=== PATIENT | male | born 1940 | race Caucasian/White ===

== ENCOUNTER → 2022-06-22 14:41 | Outpatient (CLI) | payer MEDICARE, SELFPAY ==
--- NOTE | 2022-06-22 14:46 | DI.RAD.S_ITS ---
PROCEDURE: XR HIP W PEL IF DONE MANDO MIN 4V INDICATIONS: bilateral hip pain TECHNIQUE: AP pelvis with lateral view(s) of the right and left hip(s). COMPARISON: None. FINDINGS: Bones: No fractures or dislocations. Pelvic ring appears intact. No suspicious bony lesions. Mild right hip osteoarthritic degenerative change with osseous hypertrophy. Moderate left hip osteoarthritic degenerative change with osseous hypertrophy and mild joint space narrowing. Soft tissues: The visualized bowel gas pattern is normal. No suspicious soft tissue calcifications. Ureteral lift clips. 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 Dictated by: Elayne Solis MD, PhD on 06/22/2022 at 15:37 Approved by: Elayne Solis MD, PhD on 06/22/2022 at 15:38
== END ==
PROVIDERS: PCP Internal Medicine; Referring Provider Anesthesiology; Visit Provider Anesthesiology
DX: M16.0 Bilateral primary osteoarthritis of hip (principal); M25.551 Pain in right hip; M25.552 Pain in left hip; M79.18 Myalgia, other site; M54.50 Low back pain, unspecified; G89.29 Other chronic pain
CPT/HCPCS: 73522; 99214

== ENCOUNTER → 2022-06-30 15:13 | Outpatient (CLI) | payer MEDICARE, SELFPAY ==
--- NOTE | 2022-06-30 15:14 | DI.MRI.S_ITS ---
PROCEDURE: MR LUMBAR SPINE WO CON INDICATIONS: Chronic low back pain with b/l radiculopathy TECHNIQUE: Noncontrast sagittal T1 spin echo and T2 fast echo, sagittal STIR, and T2 fast spin echo through the lumbar spine. In cases with scoliosis, additional coronal T2 fast spin echo may be performed. COMPARISON: [facility], CR, XR LUMBAR SPINE FLEXION EXTENSION, 05/19/2022, 12:48. FINDINGS: Image quality: Excellent. Alignment and Curvature: 3 mm grade 1 retrolisthesis of L5 on S1. Bone Marrow: Marrow is of normal overall signal. No acute vertebral body compression fractures. Benign hemangioma is noted in the T12 vertebral body. Spinal Cord: Conus medullaris terminates at the L1 level. Visualized cord demonstrates normal signal and size. Paraspinous Soft Tissues: No paravertebral masses. Mild grade 2 fatty infiltration of the paraspinous musculature. T12-L1: Disc desiccation without significant spinal canal stenosis or neural foraminal narrowing. L1-L2: Disc desiccation and mild circumferential disc bulging and mild bilateral facet hypertrophy, which result in mild narrowing of the spinal canal and mild bilateral neural foraminal narrowing. L2-L3: Disc desiccation and circumferential disc bulging with mild to moderate bilateral facet hypertrophy and buckling of the ligamentum flavum. Findings result in moderate narrowing of the central spinal canal is well as moderate bilateral neural foraminal narrowing. L3-L4: Disc desiccation and circumferential disc bulging and moderate bilateral facet hypertrophy and buckling of the ligamentum flavum, which result in moderate to severe narrowing of the central spinal canal, effacement of the bilateral lateral recesses, and moderate bilateral neural foraminal narrowing. L4-L5: Disc desiccation with circumferential disc bulging as well as moderate to severe bilateral facet hypertrophy and buckling of the ligamentum flavum. Findings result in severe narrowing of the central spinal canal, effacement of the lateral recesses, and moderate bilateral neural foraminal narrowing L5-S1: Disc desiccation and severe loss of disc space height with grade 1 retrolisthesis of L5 on S1 and [id number] bilateral facet hypertrophy. Findings result in moderate bilateral neural foraminal narrowing without significant spinal canal stenosis. IMPRESSION: 1. At L4-5, degenerative changes result in severe narrowing of the spinal canal and moderate bilateral neural foraminal narrowing. 2. At L3-4, degenerative changes result in moderate to severe spinal canal narrowing and moderate bilateral neural foraminal narrowing. 3. Additional multilevel degenerative disc disease and facet hypertrophy as described in detail in the body of the report. No high-grade neural foraminal narrowing. Approved by: Lamin Baumann M.D. on 06/30/2022 at 20:46
== END ==
PROVIDERS: PCP Internal Medicine; Referring Provider Anesthesiology; Visit Provider Anesthesiology
DX: M47.26 Other spondylosis with radiculopathy, lumbar region (principal); M47.27 Other spondylosis with radiculopathy, lumbosacral region; M51.16 Intervertebral disc disorders with radiculopathy, lumbar region; M48.061 Spinal stenosis, lumbar region without neurogenic claudication; M48.07 Spinal stenosis, lumbosacral region; M54.50 Low back pain, unspecified; M79.18 Myalgia, other site; M25.551 Pain in right hip; M25.552 Pain in left hip; G89.29 Other chronic pain
CPT/HCPCS: 72148

== ENCOUNTER → 2022-07-01 11:17 | Outpatient (CLI) | payer MEDICARE, SELFPAY ==
--- NOTE | 2022-07-01 11:19 | DI.RAD.S_ITS ---
PROCEDURE: XR CERVICAL SPINE 4V OR 5V INDICATIONS: Neck Pain TECHNIQUE: 5 views of the cervical spine acquired. COMPARISON: None. FINDINGS: Bones: No fractures or dislocations to the C7 level. Oblique images demonstrate no bony foraminal stenoses. Grade 1 anterolisthesis C4 on C5, likely due to facet arthrosis. Moderate disc height loss at C5-6 and C6-7, mild disc height loss at C4-5. Moderate multilevel facet arthrosis, most prominent at C3 through C7. Soft tissues: No prevertebral soft tissue swelling. IMPRESSION: Mild to moderate, multilevel degenerative disc disease and moderate, multilevel facet arthrosis. Dictated by: Yogi Granger M.D. on 07/01/2022 at 11:58 Approved by: Yogi Granger M.D. on 07/01/2022 at 12:02
== END ==
PROVIDERS: PCP Internal Medicine; Referring Provider Anesthesiology; Visit Provider Anesthesiology
DX: M50.322 Other cervical disc degeneration at C5-C6 level (principal); M47.812 Spondylosis without myelopathy or radiculopathy, cervical region; M54.16 Radiculopathy, lumbar region; M79.18 Myalgia, other site; M54.50 Low back pain, unspecified; M25.551 Pain in right hip; M25.552 Pain in left hip; G89.29 Other chronic pain
CPT/HCPCS: 72050; 99213

== ENCOUNTER 2022-07-20 08:26 | Outpatient (CLI) | payer MEDICARE, SELFPAY ==
--- NOTE | 2022-07-20 08:28 | DI.RAD.S_ITS ---
PROCEDURE: PAIN L INTERLAMINAR/CAUDAL INJ INDICATIONS: SPONDYLOSIS COMPARISON: None. FINDINGS: Fluoroscopic spot filming was performed to verify placement of spinal needles at the L5-S1 level(s), as labeled on the films. Appropriate location(s) of the needle tip(s) was confirmed by injection of iodinated contrast. IMPRESSION: Intraoperative fluoroscopy for L5-S1 epidural injection. Dictated by: Merced Carlton M.D. on 07/20/2022 at 14:08 Approved by: Merced Carlton M.D. on 07/20/2022 at 14:08
[2022-07-20 08:35] VITALS: BP 164/78; PULSE 65; RESP 18; TEMP 36.4; O2SAT 98
[2022-07-20 08:45] VITALS: BP 173/81; PULSE 63; RESP 16; O2SAT 96
[2022-07-20 08:50] VITALS: BP 173/86; PULSE 58; RESP 16; O2SAT 96
[2022-07-20] MEDS: IOPAMIDOL 15 ML VIAL 3 ML INJ (08:50)
[2022-07-20] MEDS: methylPREDNISolone acetate 80 MG/ML VIAL INJ (08:51)
[2022-07-20] MEDS: BUPIVACAINE 0.25% (PF) VIAL 2 ML INJ (08:51)
[2022-07-20 08:55] VITALS: BP 167/83; PULSE 55; RESP 16; O2SAT 96
[2022-07-20 09:00] VITALS: BP 174/91; PULSE 53; RESP 18; O2SAT 97
--- NOTE | 2022-07-20 10:31 | P.PCN_ITS ---
Date/Time/Diagnoses Date of procedure: 07/20/22 Time of procedure: 09:00 Procedure Notes Physician: Ray Marshall Total Fluoroscopy time (seconds): 12 Total sedation minutes: 0 Procedure in detail & Post-procedure care: L5-S1, right directed, Interlaminar Epidural Steroid Injection Indications: Rick is presenting for treatment of lumbar radiculopathy with low back and leg pain. Preoperative diagnosis: Lumbar radiculopathy Postoperative diagnosis: Same Focused Examination: Ax3 Mood and affect are normal Vital Signs: VSS ASA: 2 Consent: Following review of allergies and potential side effects/complications, including, but not necessarily limited to, infection, allergic reaction, local tissue breakdown, stroke, temporary or permanent nerve injury, paralysis, and possible , the patient indicated that they understood and agreed to proceed.? An informed consent document was signed by the patient, witnessed by a nurse and placed in the patient's chart.? Additionally, other treatment options including medications and physical therapy were reviewed with the patient. All questions were answered. Site was then marked. Anesthesia: Local Position: Prone Monitoring: NIBP, Pulse oximetry, 3 lead EKG Needle used: 18 G 3.5? Tuohy Contrast: Isovue 300M Injectate: Depo-Medrol 80 mg with 0.25% Bupivacaine 2 mL Technique: The skin was prepped with chloraprep and then draped in a sterile fashion. Time out was performed as per protocol. Oxygen applied via NC. Skin and subcutaneous structures of the needle entry site was then infiltrated with 3 mL of lidocaine 1%. Under AP, lateral and contralateral oblique fluoroscopic control, the Tuohy needle was guided into the L5-S1 epidural space. The space was accessed with loss of resistance technique. Isovue 300M was then injected and the spread was consistent with the epidural space. There was no evidence for intravascular or intrathecal uptake. After negative aspiration, the above- mentioned injectate was then slowly administered and the needle withdrawn. The patient expressed no unusual discomfort or paresthesias during the injection. Band-Aids applied to injection sites. EBL: less than 1 ml Complications: None Post Procedure: Patient was taken to the recovery and monitored. The patient was provided a Pain Log to continue to record the patient's response to the target- specific procedure prior to the patient's follow-up visit with the referring physician. Patient was stable upon discharge. Detailed post procedure instructions were provided. Patient was asked to call in the event of worsening pain, fever, weakness, numbness or bladder or bowel incontinence.
== END 2022-07-20 09:00 | disposition home or self-care (01) ==
LOC: RAD 08:27
PROVIDERS: PCP Internal Medicine; Referring Provider Anesthesiology; Visit Provider Anesthesiology
DX: M54.16 Radiculopathy, lumbar region (principal)
CPT/HCPCS: 62323; J1040; J3490

== ENCOUNTER 2023-06-22 14:25 | Outpatient (CLI) | payer MEDICARE, SELFPAY ==
[2023-06-22 14:40] VITALS: BP 174/78; PULSE 78; RESP 16; TEMP 36.2; O2SAT 97
--- NOTE | 2023-06-22 15:00 | DI.RAD.S_ITS ---
PROCEDURE: PAIN L INTERLAMINAR/CAUDAL INJ INDICATIONS: radiculopathy COMPARISON: [facility], XA, PAIN L INTERLAMINAR/CAUDAL INJ, 07/20/2022, 8:48. FINDINGS: Fluoroscopic spot filming was performed to verify placement of spinal needles at the right L5-S1 level(s), as labeled on the films. Appropriate location(s) of the needle tip(s) was confirmed by injection of iodinated contrast. IMPRESSION: Intraoperative fluoroscopy for interlaminar epidural steroid injection. Dictated by: Merced Carlton M.D. on 06/22/2023 at 23:45 Approved by: Merced Carlton M.D. on 06/22/2023 at 23:45
[2023-06-22 15:03] VITALS: BP 151/72; PULSE 72; RESP 15; O2SAT 98
[2023-06-22 15:05] VITALS: BP 159/76; PULSE 72; RESP 18; O2SAT 97
[2023-06-22] MEDS: DEXAMETHASONE 10 MG/ML VIAL INJ (15:07)
[2023-06-22] MEDS: iopamidoL 15 ML VIAL 3 ML INJ (15:08)
[2023-06-22 15:10] VITALS: BP 164/84; PULSE 72; RESP 17; O2SAT 98
[2023-06-22 15:16] VITALS: BP 171/85; PULSE 74; RESP 18; O2SAT 97
--- NOTE | 2023-06-22 16:38 | P.PCN_ITS ---
Date/Time/Diagnoses Date of procedure: 06/22/23 Time of procedure: 15:00 Procedure Notes Physician: Ray Marshall Total Fluoroscopy time (seconds): 10 Total sedation minutes: 0 Procedure in detail & Post-procedure care: L5-S1 Interlaminar Epidural Steroid Injection Indications: Adán is presenting for treatment of lumbar radiculopathy with low back and leg pain. Preoperative diagnosis: Lumbar radiculopathy Postoperative diagnosis: Same Focused Examination: Ax3 Mood and affect are normal Vital Signs: VSS Consent: Following review of allergies and potential side effects/complications, including, but not necessarily limited to, infection, allergic reaction, local tissue breakdown, stroke, temporary or permanent nerve injury, paralysis, and possible , the patient indicated that they understood and agreed to proceed.? An informed consent document was signed by the patient, witnessed by a nurse and placed in the patient's chart.? Additionally, other treatment options including medications and physical therapy were reviewed with the patient. All questions were answered. Site was then marked. Anesthesia: Local Position: Prone Monitoring: NIBP, Pulse oximetry, 3 lead EKG Needle used: 18 G 3.5? Tuohy Contrast: Isovue 300M Injectate: Dexamethasone 10 mg with 1% lidocaine 2 mL Technique: The skin was prepped with chloraprep and then draped in a sterile fashion. Time out was performed as per protocol. Oxygen applied via NC. Skin and subcutaneous structures of the needle entry site was then infiltrated with 3 mL of lidocaine 1%. Under AP, lateral and contralateral oblique fluoroscopic control, the Tuohy needle was guided into the L5-S1 epidural space. The space was accessed with loss of resistance technique. Isovue 300M was then injected and the spread was consistent with the epidural space. There was no evidence for intravascular or intrathecal uptake. After negative aspiration, the above- mentioned injectate was then slowly administered and the needle withdrawn. The patient expressed no unusual discomfort or paresthesias during the injection. Band-Aids applied to injection sites. EBL: less than 1 ml Complications: None Post Procedure: Patient was taken to the recovery and monitored. The patient was provided a Pain Log to continue to record the patient's response to the target- specific procedure prior to the patient's follow-up visit with the referring physician. Patient was stable upon discharge. Detailed post procedure instructions were provided. Patient was asked to call in the event of worsening pain, fever, weakness, numbness or bladder or bowel incontinence.
--- NOTE | 2023-06-23 13:51 | PC.NURSE ---
Post-Procedure Call: Spoke with patient at [phone]. No concerns. Expressed questions about his follow up appointment. Encouraged patient to call the office as well as sent an email communication to the office that he needs his follow up appointment changed.
== END 2023-06-22 15:28 | disposition home or self-care (01) ==
PROVIDERS: PCP Internal Medicine; Referring Provider Anesthesiology; Visit Provider Anesthesiology
DX: M54.16 Radiculopathy, lumbar region (principal)
CPT/HCPCS: 62323; J1100

== ENCOUNTER → 2023-08-04 16:14 | Outpatient (CLI) | payer MEDICARE, SELFPAY ==
--- NOTE | 2023-08-04 16:15 | DI.US.S_ITS ---
PROCEDURE: US PERIPH VENOUS LOW EXTREM RT INDICATIONS: Right lower extremity pain/swelling, recent travel TECHNIQUE: Real-time imaging, as well as color and pulse Doppler interrogation, were performed of the lower extremity deep veins from the inguinal ligament to the popliteal fossa, with documentation of the visualized calf veins. COMPARISON: None. FINDINGS: The common femoral, femoral, popliteal, and the visualized calf veins are normally compressible, and free of intraluminal thrombus. Color and pulse Doppler demonstrate normal phasic intraluminal flow. There is normal augmentation response to distal compression maneuver. There is a complex Angel cyst, potentially ruptured, measuring 5.2 x 3.5 x 1.9 cm. IMPRESSION: 1. Large complex Angel cyst, potentially ruptured. 2. Negative right lower extremity duplex venous ultrasound for DVT. Dictated by: Surinder Gale M.D. on 08/04/2023 at 17:14 Approved by: Surinder Gale M.D. on 08/04/2023 at 17:15
== END ==
PROVIDERS: PCP Internal Medicine; Referring Provider Anesthesiology; Visit Provider Anesthesiology
DX: M79.89 Other specified soft tissue disorders (principal); M71.21 Synovial cyst of popliteal space [Baker], right knee; R60.0 Localized edema; M79.604 Pain in right leg
CPT/HCPCS: 93971

== ENCOUNTER → 2023-09-20 11:47 | Outpatient (CLI) | payer MEDICARE, SELFPAY ==
--- NOTE | 2023-09-20 11:48 | DI.RAD.S_ITS ---
PROCEDURE: XR KNEE RT 3V INDICATIONS: Right knee pain TECHNIQUE: 3 views of the knee were acquired. COMPARISON: None. FINDINGS: Bones: No fractures or dislocations. No suspicious bony lesions. Tricompartmental joint space narrowing with associated osteophytosis. Soft tissues: Moderate joint effusion. No suspicious soft tissue calcifications. IMPRESSION: Moderate knee joint effusion. [id number] tricompartmental osteoarthritis. Kellgren-Jordan Grade 2. Dictated by: Yogi Granger M.D. on 09/20/2023 at 14:32 Approved by: Yogi Granger M.D. on 09/20/2023 at 14:34
== END ==
PROVIDERS: PCP Internal Medicine; Referring Provider Anesthesiology; Visit Provider Anesthesiology
DX: M17.11 Unilateral primary osteoarthritis, right knee (principal); M25.561 Pain in right knee
CPT/HCPCS: 73562

== ENCOUNTER 2023-12-05 13:15 | Day surgery (SDC) | payer MEDICARE, SELFPAY ==
[2023-12-01 15:56] VITALS: BMI 29.5
[2023-12-05] VITALS (9 sets, daily range): BP systolic 147–176; BP diastolic 70–91; PULSE 54–83; RESP 14–19; TEMP 36.1–36.8; O2SAT 93–99; BMI 27.8
--- NOTE | 2023-12-05 | DI.RAD.S_ITS ---
PROCEDURE: XR LUMBAR SPINE 2-3V INDICATIONS: L3-4, L4-5 LAMI TECHNIQUE: 4 intraoperative fluoroscopic views of the lumbar spine were acquired. COMPARISON: None. FINDINGS: Intraoperative fluoroscopic images shows surgical hardware placed posteriorly at L3-4 and L4-5 levels. IMPRESSION: Fluoro guidance was provided intraoperatively for L3-4 and L4-5 laminectomy performed by ordering physician. Dictated by: Oscar Willoughby M.D. on 12/05/2023 at 22:33 Approved by: Oscar Willoughby M.D. on 12/05/2023 at 22:34
[2023-12-05] MEDS: LACTATED RINGERS 1,000 ML 42 ML IV ×2 (14:28→16:59)
[2023-12-05] MEDS: ACETAMINOPHEN 325 MG TABLET 975 MG PO (14:28)
[2023-12-05] MEDS: PREGABALIN 75 MG CAPSULE PO (14:29)
[2023-12-05] MEDS: FAMOTIDINE 20 MG/2 ML VIAL IV (14:39)
--- NOTE | 2023-12-05 15:44 | PM.PREOP ---
Pre-operative Note Interval Note History & Physical reviewed/Exam performed by Physician: Yes Changes to H&P: No
--- NOTE | 2023-12-05 16:04 | SUR.OPER ---
Prone on spine table, head in foam head support, padded chest and pelvic supports, gel pad at knees, lower legs supported by pillows; nipples, genitalia and toes free of pressure, arms secured on foam padded arm boards at <90 degrees abduction. Tape over blanket at thigh secured to table.
[2023-12-05] MEDS: CEFAZOLIN 2 GM/100 ML PREMIX 100 ML IV (16:10)
[2023-12-05] MEDS: BUPIVACAINE 0.25% (PF) 30 ML, EPINEPHrine 0.15 MG INJ (16:20)
--- NOTE | 2023-12-05 18:14 | PM.OP.1 ---
Operative Date/Time/Diagnoses Date of procedure: 12/05/23 Time of procedure: 16:30 Pre-op diagnosis: 1. L3-4, L4-5 spinal stenosis with neurogenic claudication Post-op diagnosis: same Procedure & Clinicians Procedure: 1. L3-4, L4-5 laminectomies with bilateral partial facetecomies 2. Utilization of microsurgical technique and operating microscope Same procedure as scheduled: Yes Indications: Patient has been having chronic back pain and worsening lumbar radiculopathy and symptoms of neurogenic claudication. Patient has MRI showing severe spinal stenosis at L3-4 L4-5 correlating with patient's symptoms. Patient failed multiple conservative management with worsening pain weakness and numbness in his lower extremity. Patient has been having difficulty performing activity of daily living. After discussing risks benefits of treatment options, patient elected proceed with surgery. Surgeon: Juan Manuel Lund Labor Relations Worker: Lexy Hayes Click Yes if Unassisted: No Anesthesia Type: General Operative Notes Closure Type: primary Specimen(s): none sent Estimated Blood Loss (mL): 5 Blood products transfused: none Procedure in detail: Patient was seen in the preoperative area. Risks and benefits of the surgery was discussed with the patient. Informed consent was obtained from the patient and placed in the chart. Surgical site was marked. Patient was taken to the operative room. General anesthesia was administered. Prophylactic antibiotic was given to the patient less than 30 min before the incision was made. Patient was placed into a prone position on the Howie table. Patient's back was then prepped and draped in the sterile fashion. Time-out was performed at this time. Using AP and lateral C-arm imaging the interval between L4-5 was identified and marked on patient's back. A 1 inch incision 1 in from midline was made on the right side. The fascia was incised in line with skin incision. Globus MARS retractors was placed inside the incision and docked onto the L4 lamina. Using microsurgical technique and operating microscope, a L4 laminectomy was performed using a Kerrison rongeur. Liagamentum flavum was resected at the site of the laminotomy. Either side of the dura was exposed. Bilateral partial facetcomies was performed to further decompress the lateral recess. After the laminectomy was completed, the area medial lateral superior and inferior to the area of the laminectomy was inspected and explored using a micro curette. No other impinging structure was identified. The mars retractor was redirected over the L3-4 interval. Using microsurgical technique and operative microscope a laminectomy was performed at L3-4 level. Kerrison rongeur a micro curette was used to free up the ligamentum flavum which was resected during the process of a laminectomy for the further decompressing the epidural space and lateral recess. Partial facetectomy was performed to further decompress the lateral recess at L3-4 level. The wound was then irrigated with sterile normal saline. 40 mg Depo-Medrol was placed into the epidural space. The deep fascia was closed with 1-0 Vicryl. The subcutaneous tissue was closed with 2-0 Vicryl. The skin was closed with 4-0 Monocryl. Patient tolerated the procedure well. There were no complications. Patient was transferred recovery room in stable condition. The Operation could not have been safely performed without compromising the technical result or length of the procedure, without the assistance of a skilled surgical product sales consultant. The surgical product sales consultant was medically necessary for proper positioning, retraction and manipulation of instruments, proper exposure, surgical preparation, and manipulation of tissue. Complications: none Post-operative Condition: stable Disposition: PACU Plan for aftercare: Discharge to home
== END 2023-12-05 19:12 | disposition home or self-care (01) ==
LOC: OR 13:16 → AC 13:19
PROVIDERS: PCP Internal Medicine; Referring Provider Orthopaedic Surgery Orthopaedic Surgery of the Spine; Visit Provider Orthopaedic Surgery Orthopaedic Surgery of the Spine
PROC: (CPT 63047; principal; 2023-12-05 15:30)
DX: M48.062 Spinal stenosis, lumbar region with neurogenic claudication (principal); M54.16 Radiculopathy, lumbar region
CPT/HCPCS: 63047; 63048; 72100; 76000; J0171; J0461; J0690; J1100; J2405; J2704; J2919; J3010